=== PATIENT | female | born 2005 | race Caucasian/White ===

== ENCOUNTER 2023-11-24 16:00 | Emergency (ER) | payer OTHER ==
[2023-11-24 16:08] VITALS: BP 119/79; PULSE 101; RESP 16; TEMP 98.3; BMI 25.2
[2023-11-24] MEDS ORDERED: DEXAMETHASONE SOD PHOSPHATE 10 MG/1 ML VIAL ONE (16:50)
[2023-11-24] MEDS ORDERED: ACETAMINOPHEN 500 MG TABLET (FP) ONE (16:50)
[2023-11-24 16:56] LABS: THROAT:GRP A STREP NOT DETECTED (NOTDETECTED)
[2023-11-24] MEDS: DEXAMETHASONE SOD PHOSPHATE 10 MG/1 ML VIAL IM ONE (16:59)
[2023-11-24] MEDS: ACETAMINOPHEN 500 MG TABLET (FP) PO ONE (16:59)
== END 2023-11-24 17:24 | disposition home or self-care (01) ==
LOC: JER 16:00 → JERFT 16:00
PROC: 3E023GC Introduction of Other Therapeutic Substance into Muscle, Percutaneous Approach (ICD-10-PCS; principal; 2023-11-24)
DX: R05.9 Cough, unspecified (principal); J02.9 Acute pharyngitis, unspecified; J06.9 Acute upper respiratory infection, unspecified; Z20.822 Contact with and (suspected) exposure to COVID-19
CPT/HCPCS: 0241U-QW; 87651; 99284-25; J1100

== ENCOUNTER 2024-05-03 13:40 | Emergency (ER) | payer OTHER ==
[2024-05-03 13:53] VITALS: RESP 18; BMI 25.8
[2024-05-03] MEDS: SODIUM CHLORIDE 0.9% 500 ML INFUS.BAG IV ONE (14:38)
[2024-05-03 15:08] LABS: BASO % 0.2 % (0-2.0); HCG,QUALITATIVE URINE Negative; HEMATOCRIT 39.8 % (32.4-45.2); HEMOGLOBIN 13.3 GM/dL (10.7-15.3); LYMPH % 34.7 % (8-40); MCH 27.7 pg (25.7-33.7); MCHC 33.5 g/dl (32.0-36.0); MEAN CELL VOLUME 82.7 fl (80-96); MEAN PLT VOLUME 7.5 fl (7.5-11.1); MONO % 7.8 % (3.8-10.2); NEUT % 56.3 % (42.8-82.8); PLATELET COUNT 265 10^3/uL (134-434); RBC 4.81 M/mm3 (3.60-5.2); WHITE BLOOD COUNT 8.3 K/mm3 (4.0-10.0)
[2024-05-03 15:23] LABS: INR 0.94 (0.83-1.09); PROTHROMBIN TIME (PATIENT) 10.6 SEC (9.7-13.0)
[2024-05-03 15:26] LABS: ACTIVATED PTT 33.6 SECONDS (25.2-36.5); POTASSIUM 3.8 mmol/L (3.5-5.1)
[2024-05-03 15:28] LABS: ALBUMIN 4.1 g/dl (3.4-5.0); CALCIUM 9.4 mg/dL (8.5-10.1)
[2024-05-03 15:29] LABS: BLOOD UREA NITROGEN 9.1 mg/dL (7-18); MAGNESIUM 2.1 mg/dL (1.8-2.4)
[2024-05-03 15:32] LABS: CREATININE 0.6 mg/dL (0.55-1.3); PHOSPHOROUS 2.8 mg/dL (2.5-4.9)
[2024-05-03 15:33] LABS: BILIRUBIN,TOTAL 0.7 mg/dL (0.2-1); TOT PROT 7.4 g/dl (6.4-8.2)
[2024-05-03 15:34] LABS: URINE APPEARANCE CLEAR; URINE BILIRUBIN NEGATIVE (NEGATIVE); URINE COLOR YELLOW; URINE GLUCOSE (UA) NEGATIVE (NEGATIVE); URINE KETONE NEGATIVE (NEGATIVE); URINE LEUK ESTERASE TRACE (NEGATIVE); URINE NITRITE NEGATIVE (NEGATIVE); URINE PROTEIN NEGATIVE (NEGATIVE); URINE UROBILINOGEN 0.2 mg/dL (0.2-1.0)
[2024-05-03 15:41] LABS: EPI CELLS 8 /uL (0-25.1); HYALINE CASTS 0 /uL (0-3.1); URINE BACTERIA 197 /uL (0-1359); URINE RBC 84 /uL (0-23.9); URINE WBC 8 /uL (0-25.8)
[2024-05-03 18:42] VITALS: BP 117/87; PULSE 76; TEMP 99
== END 2024-05-03 18:46 | disposition home or self-care (01) ==
LOC: JER 13:40
DX: R55 Syncope and collapse (principal); E05.90 Thyrotoxicosis, unspecified without thyrotoxic crisis or storm; R00.0 Tachycardia, unspecified; R42 Dizziness and giddiness; Z20.822 Contact with and (suspected) exposure to COVID-19
CPT/HCPCS: 0241U-QW; 36415; 71045-TC-FY; 80053; 81003; 83735; 84100; 84443; 84484; 84703; 85025; 85610; 85730; 87077; 87086; 93005; 93010; 99285-25

== ENCOUNTER 2024-11-13 20:45 | Emergency (ER) | payer OTHER ==
[2024-11-13 20:53] VITALS: BMI 24.3
[2024-11-13] MEDS ORDERED: ONDANSETRON 4 MG/2 ML VIAL ONE (21:10)
[2024-11-13] MEDS ORDERED: ACETAMINOPHEN INJECTION 100 ML ONE (21:10)
[2024-11-13] MEDS: ACETAMINOPHEN 1000 MG/100 ML BAG IVPB ONE (21:21)
[2024-11-13] MEDS: SODIUM CHLORIDE 0.9% 500 ML INFUS.BAG IV ONE ×2 (21:22→22:23)
[2024-11-13] MEDS: ONDANSETRON 4 MG/2 ML VIAL IVPUSH ONE (21:22)
[2024-11-13 21:45] LABS: ABSOLUTE IMMATURE GRANULOCYTES 0.04 x10^3/uL (0.0-0.031); BASOPHILS # 0.01 x10^3/uL (0.01-0.08); EOSINOPHIL % 0.1 % (0.7-5.8); EOSINOPHILS # 0.01 x10^3/uL (0.04-0.36); MCHC 33.2 g/dl (32.2-35.5); MEAN CELL VOLUME 79.4 fl (79.4-94.8); MEAN PLT VOLUME 8.8 fl (9.4-12.3); MONOCYTE # 0.83 x10^3/uL (0.24-0.86); MONOCYTE % 11.3 % (4.7-12.5); RDW 12.2 % (12.1-16.5)
[2024-11-13 22:06] LABS: CO2 25.0 mmol/L (21-32)
[2024-11-13 22:07] LABS: GLUCOSE,RANDOM 118.0 mg/dL (74-106)
[2024-11-13 22:09] LABS: SGPT/ALT 26.0 U/L (13-61)
[2024-11-13 22:10] LABS: CREATININE 0.4 mg/dL (0.55-1.3)
[2024-11-13 22:11] LABS: ALK PHOS 73.0 U/L (45-117); TOT PROT 6.0 g/dl (6.4-8.2)
[2024-11-13] MEDS: MAGNESIUM 1GM/D5W - 1 GM/100 ML IVPB IVPB ONE (22:23)
[2024-11-13] MEDS ORDERED: MAGNESIUM 1GM/D5W - 1 GM/100 ML IVPB IVPB ONE (22:23)
[2024-11-13 22:49] LABS: SGOT/AST 14.0 U/L (15-37)
[2024-11-14 00:25] VITALS: BP 111/69; PULSE 120; RESP 17; TEMP 98.9
[2024-11-14 00:27] LABS: HIV INTERPRETATION NEGATIVE (NEGATIVE)
[2024-11-14 00:29] LABS: HCV DIAGNOSTIC IN-HOUSE W/RFLX NON-REACTIVE (NONREACTIVE)
== END 2024-11-14 00:28 | disposition home or self-care (01) ==
LOC: JER 20:45
PROC: 3E033GC Introduction of Other Therapeutic Substance into Peripheral Vein, Percutaneous Approach (ICD-10-PCS; principal; 2024-11-13)
PROC: 3E033GC Introduction of Other Therapeutic Substance into Peripheral Vein, Percutaneous Approach (ICD-10-PCS; 2024-11-13)
PROC: 3E033GC Introduction of Other Therapeutic Substance into Peripheral Vein, Percutaneous Approach (ICD-10-PCS; 2024-11-13)
DX: R11.2 Nausea with vomiting, unspecified (principal); R53.81 Other malaise; R10.31 Right lower quadrant pain
CPT/HCPCS: 36415; 74177-TC; 80053; 83735; 84703; 85025; 86803; 87389; 87637-QW; 99285-25